=== PATIENT | male | born 1980 ===

== ENCOUNTER 2016-08-09 22:14 | Emergency (ER) | payer OTHER ==
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
[2016-08-10] MEDS ORDERED: TYLENOL PO ONE (02:00)
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
[2016-08-10] MEDS ORDERED: NORCO 10/325 PO ONE (04:26)
[2016-08-10 05:13] VITALS: BP 108/60
--- NOTE | 2016-08-10 08:53 | XRay Report ---
RIGHT SHOULDER: History: Pain. Routine views demonstrate normal bony and soft tissue structures with normal joint alignment of the shoulder. IMPRESSION: Normal study.
== END 2016-08-10 04:45 | disposition home or self-care (01) ==
LOC: ED 22:14
DX: S09.90XA Unspecified injury of head, initial encounter (principal); S16.1XXA Strain of muscle, fascia and tendon at neck level, initial encounter; S40.011A Contusion of right shoulder, initial encounter; F17.200 Nicotine dependence, unspecified, uncomplicated; V89.2XXA Person injured in unspecified motor-vehicle accident, traffic, initial encounter; Y93.89 Activity, other specified; Y99.9 Unspecified external cause status; Y92.410 Unspecified street and highway as the place of occurrence of the external cause
CPT/HCPCS: 70450; 72125